=== PATIENT | male | born 2000 | race Caucasian/White ===

== ENCOUNTER 2018-01-24 09:49 | Outpatient (CLI) | payer OTHER | END 2018-01-24 09:50 | disposition critical access hospital (66) | LOC: EMS 09:49 | PROVIDERS: ATTEND Surgery | DX: R07.81 Pleurodynia (principal); M54.5 Low back pain; M25.551 Pain in right hip; M25.531 Pain in right wrist; W17.89XA Other fall from one level to another, initial encounter; Y92.69 Other specified industrial and construction area as the place of occurrence of the external cause; Y99.0 Civilian activity done for income or pay | CPT/HCPCS: A0425; A0427 ==

== ENCOUNTER 2018-01-24 10:06 | Emergency (ER) | payer OTHER ==
[2018-01-24] MEDS ORDERED: MORPHINE 10 MG/ML VIAL IVP STA (10:27)
[2018-01-24 10:35] LABS: BASOPHILS % (AUTO) 0.4 %; EOSINOPHILS # (AUTO) 0.1 10^3/uL (0.0-0.7); EOSINOPHILS % (AUTO) 1.3 %; HGB - HEMOGLOBIN 15.9 g/dL (14.0-18.0); LYMPHOCYTES % (AUTO) 22.2 %; MEAN CORPUSCULAR HEMOGLOBIN 29.9 pg (27.0-31.0); MEAN CORPUSCULAR HGB CONC 35.2 g/dL (32.0-36.0); MEAN CORPUSCULAR VOLUME 84.8 fL (80.0-94.0); MEAN PLATELET VOLUME 8.5 fL (7.4-11.4); MONOCYTES # (AUTO) 0.7 10^3/uL (0.0-1.0); MONOCYTES % (AUTO) 7.4 %; NEUTROPHILS # (AUTO) 6.2 10^3/uL (1.5-6.6); NEUTROPHILS % (AUTO) 68.7 %; PLT - PLATELET COUNT 152 10^3/uL (130-450); RED BLOOD COUNT 5.31 10^6/uL (4.70-6.10); RED CELL DISTRIBUTION WIDTH 13.1 % (12.0-15.0)
[2018-01-24 10:39] LABS: CALCIUM 9.6 mg/dL (8.5-10.3); CREATININE 1.3 mg/dL (0.6-1.2)
[2018-01-24] MEDS ORDERED: IOPAMIDOL-300 100 ML VIAL ONE (10:59)
[2018-01-24] MEDS ORDERED: IOPAMIDOL-300 100 ML VIAL IVP ONE (11:37)
--- NOTE | 2018-01-24 11:43 | CT Preliminary Report ---
Exam: CT HEAD W/O IMPRESSION: Normal head CT. [facility] SITE ID: [id number]
--- NOTE | 2018-01-24 11:44 | CT Report ---
EXAM: CT HEAD EXAM DATE: 01/24/2018 11:07 AM. CLINICAL HISTORY: 20 foot fall off scaffolding. COMPARISON: None. TECHNIQUE: Multiaxial CT images were obtained from the foramen magnum to the vertex. Reformats: Coron al. IV contrast: None. In accordance with CT protocol optimization, one or more of the following dose reduction techniques w ere utilized for this exam: automated exposure control, adjustment of mA and/or KV based on patient s ize, or use of iterative reconstructive technique. FINDINGS: Parenchyma: No intraparenchymal hemorrhage. No evidence of mass, midline shift, or CT findings of inf arction. Hall-white differentiation is distinct. Extraaxial Spaces: Normal for age. No subdural or epidural collections identified. Ventricles: Normal in size and position. Sinuses and Orbits: Small mucous retention cyst in the right maxillary sinus. Bones: No evidence of fracture or calvarial defect. Other: None. IMPRESSION: Normal head CT. [facility] Referring Provider Line: [phone] SITE ID: [id number]
--- NOTE | 2018-01-24 11:44 | XRAY Preliminary Report ---
Exam: XR WRIST 4 VIEW RT IMPRESSION: Normal wrist radiography. [facility] SITE ID: [id number]
--- NOTE | 2018-01-24 11:45 | XRAY Report ---
EXAM: RIGHT WRIST RADIOGRAPHY EXAM DATE: 01/24/2018 11:14 AM. CLINICAL HISTORY: Right wrist pain after falling 20 ft off scaffold. COMPARISON: None. TECHNIQUE: 4 views. FINDINGS: Bones: Normal. No fractures or bone lesions. Joints: Normal. No subluxations. Soft Tissues: Normal. No soft tissue swelling. IMPRESSION: Normal wrist radiography. [facility] Referring Provider Line: [phone] SITE ID: [id number]
--- NOTE | 2018-01-24 11:56 | CT Preliminary Report ---
Exam: CT CERVICAL SPINE W/O IMPRESSION: 1. Negative CT scan of the cervical spine. No acute injury. No significant spondylosis. [facility] SITE ID: [id number]
--- NOTE | 2018-01-24 12:06 | CT Report ---
EXAM: CT CERVICAL SPINE WITHOUT CONTRAST DATE: 01/24/2018 11:21 AM. HISTORY: 20 ft fall off scaffold. Right low abdominal/hip pain. COMPARISONS: None. TECHNIQUE: Thin-section axial images were acquired of the cervical spine without contrast. Post-proce ssing: Coronal and sagittal reformats. Other: None. In accordance with CT protocol optimization, one or more of the following dose reduction techniques w ere utilized for this exam: automated exposure control, adjustment of mA and/or KV based on patient s ize, or use of iterative reconstructive technique. FINDINGS: Alignment: No scoliosis or spondylolisthesis. Bones: No fracture or bone lesion. Normal osseous density is seen. Interspace Levels/Facets: C1-C2: Unremarkable. C2-C3: Unremarkable. C3-C4: Unremarkable. C4-C5: Unremarkable. C5-C6: Unremarkable. C6-C7: Unremarkable. C7-T1: Unremarkable. T1-T2, T2-T3: Unremarkable. Musculature: Normal. No fatty atrophy. Other: The paravertebral and prevertebral soft tissues are unremarkable. The lung apices are clear. S mall focus of polypoid mucosal thickening is seen posteromedially in the right maxillary antrum. IMPRESSION: 1. Negative CT scan of the cervical spine. No acute injury. No significant spondylosis. [facility] Referring Provider Line: [phone] SITE ID: [id number]
--- NOTE | 2018-01-24 12:06 | CT Preliminary Report ---
Exam: CT LUMBAR SPINE W/O IMPRESSION: 1. Negative CT scan of the lumbar spine. No acute abnormality. No significant spondylosis. No stenosi s. 2. Hypoplastic ribs are seen at T12 bilaterally. There are 4 nonrib-bearing lumbar type vertebrae. Sa cralization of L5 is seen bilaterally. 3. Negative CT scan of the sacrum. [facility] SITE ID: [id number]
--- NOTE | 2018-01-24 12:09 | CT Report ---
EXAM: CT CHEST EXAM DATE: 01/24/2018 11:37 AM. CLINICAL HISTORY: Fall from 20 feet, right sided chest pain. COMPARISONS: None. TECHNIQUE: Routine helical CT imaging was performed through the chest. IV contrast: 100 cc Isovue-300 . Reconstructions: Coronal and sagittal. In accordance with CT protocol optimization, one or more of the following dose reduction techniques w ere utilized for this exam: automated exposure control, adjustment of mA and/or KV based on patient s ize, or use of iterative reconstructive technique. FINDINGS: Lungs/Pleura: Small patchy groundglass attenuation lateral inferior left lower lobe and lingula. A sm all bleb and adjacent patchy groundglass opacities medial right lower lobe posterior to the right hea rt border. Minor atelectasis posterior basilar bilateral lower lobes. No lise consolidation. No pneu mothorax or pleural effusion. Mediastinum: Anterior superior mediastinal soft tissue density with triangular configuration, compati ble with residual thymus. No mediastinal hematoma or convincing adenopathy. Normal heart size without pericardial effusion. Unremarkable thoracic aorta and great vessels. Bones: Mild acute compression fracture T9 superior endplate without retropulsion. Intact posterior el ements. Mild local paraspinous soft tissue thickening. Mild anterior wedging of T6 superior endplate, without paraspinous soft tissue thickening. No rib or other fracture identified. Visualized Abdomen: No acute findings. See report of concurrent CT abdomen and pelvis. IMPRESSION: 1. Consistent with mild pulmonary contusion medial right lower lobe, lateral basilar left lower lobe, and lingula. No lise consolidation or effusion. 2. Mild acute compression fracture T9 superior endplate with mild local paraspinous soft tissue thick ening. 3. Minor anterior wedging of T6 superior endplate of uncertain acuity. 4. Unremarkable thoracic aorta. No mediastinal hematoma. Small thymic remnant. [facility] Referring Provider Line: [phone] SITE ID: [id number]
[2018-01-24 12:16] LABS: BILIRUBIN,URINE NEGATIVE (NEGATIVE); GLUCOSE, URINE (UA) NEGATIVE (NEGATIVE); KETONES,URINE (UA) NEGATIVE (NEGATIVE); LEUKOCYTE ESTERASE, URINE NEGATIVE (NEGATIVE); NITRITE,URINE NEGATIVE (NEGATIVE); OCCULT BLOOD,URINE LARGE (NEGATIVE); PH,URINE 7.5 PH (5.0-7.5); PROTEIN,URINE 30 mg/dL (NEGATIVE); UROBILINOGEN,URINE 1 (NORMAL) E.U./dL (NORMAL)
--- NOTE | 2018-01-24 12:22 | CT Preliminary Report ---
Exam: CT ABDOMEN/PELVIS W/ IMPRESSION: 1. No definite acute traumatic visceral injury. 2. Heterogeneous attenuation of the spleen, probably artifact of contrast bolus timing and diminishes parenchymal detail. No subcapsular or perisplenic collection. 3. Nonspecific somewhat hazy para-aortic fat planes, without focal hematoma or adenopathy. [facility] SITE ID: [id number]
--- NOTE | 2018-01-24 12:22 | CT Report ---
EXAM: CT LUMBAR AND SACRUM SPINE WITHOUT CONTRAST EXAM DATE: 01/24/2018 11:29 AM. CLINICAL HISTORY: Low back pain after a 20 foot fall. COMPARISONS: CT scan of the chest, abdomen, and pelvis 01/24/2018. TECHNIQUE: Thin-section axial images were acquired of the lumbar spine from T12 to S5 without contras t. Post-processing: Coronal and sagittal reformats. Other: None. In accordance with CT protocol optimization, one or more of the following dose reduction techniques w ere utilized for this exam: automated exposure control, adjustment of mA and/or KV based on patient s ize, or use of iterative reconstructive technique. FINDINGS: Alignment: No scoliosis or spondylolisthesis. Bones: There are four [id number] lumbar vertebral bodies are present. Hypoplastic ribs are seen at T12 bilaterally. Numbering assumes sacralization of the L5 vertebrae. No fractures or bone lesions . Disk Levels/Facets: T12-L1: Unremarkable. L1-L2: Unremarkable. L2-L3: Unremarkable. L3-L4: Unremarkable. L4-L5: Unremarkable. L5-S1: Unremarkable. Sacrum: The sacrum is intact. No fracture. The SI joints are unremarkable. Musculature: Normal. No fatty atrophy. Other: The visualized retroperitoneum is unremarkable. IMPRESSION: 1. Negative CT scan of the lumbar spine. No acute abnormality. No significant spondylosis. No stenosi s. 2. Hypoplastic ribs are seen at T12 bilaterally. There are four nonrib-bearing lumbar-type vertebrae. Sacralization of L5 is seen bilaterally. 3. Negative CT scan of the sacrum. [facility] Referring Provider Line: [phone] SITE ID: [id number]
--- NOTE | 2018-01-24 12:23 | CT Report ---
EXAM: CT ABDOMEN AND PELVIS EXAM DATE: 01/24/2018 11:37 AM. CLINICAL HISTORY: Right abd pain after falling 20 ft off scaffold. COMPARISONS: None. TECHNIQUE: Routine helical CT imaging was performed through the abdomen and pelvis. IV contrast: 100 cc Isovue-300. Enteric contrast: No. Reconstructions: Coronal and sagittal. In accordance with CT protocol optimization, one or more of the following dose reduction techniques w ere utilized for this exam: automated exposure control, adjustment of mA and/or KV based on patient s ize, or use of iterative reconstructive technique. FINDINGS: Lung Bases: Mild bibasilar groundglass opacities as described on the chest CT report. Liver: Unremarkable. No focal abnormality identified. Gallbladder/Bile Ducts: No calcified gallstones or ductal dilatation. Spleen: Normal size. Mild diffuse heterogeneous attenuation, question artifact related to contrast briana filipe timing. No subcapsular or perisplenic fluid collection. Pancreas: Unremarkable. Adrenal Glands: No nodule. Kidneys: Unremarkable, without hydronephrosis or abnormal parenchymal enhancement. Peritoneal Cavity/Bowel: No free fluid, free air, or mesenteric hematoma. No dilatation of the nonopa cified bowel. Normal appendix. Retroperitoneum: Nonspecific haziness of para-aortic fat planes just below the level of the renal ves sels. No discrete hematoma or adenopathy identified. Pelvic Organs: Unremarkable bladder and visualized pelvic organs. Vasculature: Unremarkable abdominal aorta. No significant findings identified. Bones: Mild compression fracture T9 superior endplate as described on the chest CT report. No pelvic fracture. Unremarkable hip joints. IMPRESSION: 1. No definite acute traumatic visceral injury. 2. Heterogeneous attenuation of the spleen, probably artifact of contrast bolus timing and diminishes parenchymal detail. No subcapsular or perisplenic collection. 3. Nonspecific somewhat hazy para-aortic fat planes, without focal hematoma or adenopathy. [facility] Referring Provider Line: [phone] SITE ID: [id number]
[2018-01-24 12:26] LABS: CLARITY,URINE CLEAR (CLEAR)
[2018-01-24 12:37] LABS: BACTERIA,URINE Rare /HPF (None Seen); SQUAMOUS EPITHELIAL CELL,UR RARE Squamous (<= Few)
[2018-01-24 12:58] VITALS: BP 137/91
[2018-01-24] MEDS ORDERED: IBUPROFEN 800 MG TABLET PO STA (13:09)
--- NOTE | 2018-01-24 13:12 | ED Physician Documentation ---
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 He impacted the right side of his body. He denies loss of consciousness. He presents now via ambulance, complaining of pain in his right hip, low back, right chest, and right wrist. He denies headache, neck pain, abdominal pain, numbness or weakness. Vaccinations are up-to-date. Review of Systems Constitutional: denies: Fever Eyes: denies: Decreased vision Nose: denies: Congestion Throat: denies: Sore throat Cardiac: reports: Chest pain / pressure (right sided) Respiratory: denies: Dyspnea, Cough GI: denies: Abdominal Pain, Nausea, Vomiting : denies: Dysuria, Incontinent Skin: denies: Laceration (s) Musculoskeletal: reports: Back pain, Extremity pain (Right lower extremity. Right wrist.). denies: Neck pain Neurologic: denies: Focal weakness, Numbness, Headache, LOC PD PAST MEDICAL HISTORY - Past Medical History Past Medical History: No Respiratory: None Endocrine/Autoimmune: None - Past Surgical History Past Surgical History: No - Present Medications Home Medications: Ambulatory Orders Medication Instructions Recorded Confirmed HYDROcod/ACETAM 5/325 [[place] 5/325] 1 - 2 ea PO Q6H PRN #30 tablet 01/24/18 - Allergies Allergies/Adverse Reactions: Allergies Allergy/AdvReac Type Severity Reaction Status Date / Time No Known Drug Allergies Allergy Verified 01/24/18 10:14 - Social History Does the pt smoke?: Yes Smoking Status: Current every day smoker PD ED PE NORMAL - Vitals Vital signs reviewed: Yes (Initially hypertensive.) - General General: Alert and oriented X 3, Well developed/nourished - HEENT HEENT: Atraumatic, EOMI, Ears normal - Neck Neck: No bony TTP - Cardiac Cardiac: RRR, No murmur - Respiratory Respiratory: No respiratory distress, Clear bilaterally, Other (Tenderness to palpation along the right mid to lower chest wall. No bony step-off palpated.) - Abdomen Abdomen: Soft, Non tender - Back Back: No CVA TTP, Other (Tenderness to palpation of the lower thoracic spine.) - Derm Derm: No rash - Extremities Extremities: Other (Tenderness to palpation at the radial aspect of the right wrist. He has full range of motion of his shoulders and elbows without tenderness. He has full range of motion of his hips, knees, and ankles bilaterally, without tenderness.) - Neuro Neuro: Alert and oriented X 3, No motor deficit, No sensory deficit Results - Vitals Vitals: Oxygen O2 Source Room air - Labs Labs: Laboratory Tests 01/24/18 01/24/18 01/24/18 10:10 10:10 12:00 WBC 9.0 RBC 5.31 Hgb 15.9 Hct 45.1 MCV 84.8 MCH 29.9 MCHC 35.2 RDW 13.1 Plt Count 152 MPV 8.5 Neut # 6.2 Lymph # 2.0 [place] # 0.7 Eos # 0.1 Baso # 0.0 Absolute Nucleated RBC 0.01 Nucleated RBC % 0.1 Sodium 137 Potassium 4.6 Chloride 102 Carbon Dioxide 27 Anion Gap 8.0 BUN 19 Creatinine 1.3 H Estimated GFR (MDRD) 71 L Glucose 106 H Calcium 9.6 Urine Color YELLOW Urine Clarity CLEAR Urine pH 7.5 Ur Specific [place] 1.010 Urine Protein 30 H Urine Glucose (UA) NEGATIVE Urine Ketones NEGATIVE Urine Occult Blood LARGE H Urine Nitrite NEGATIVE Urine Bilirubin NEGATIVE Urine Urobilinogen 1 (NORMAL) Ur Leukocyte Esterase NEGATIVE Urine RBC 11-25 H Urine WBC 0-3 Ur Squamous Epith Cells RARE Squamous Urine Bacteria Rare Ur Microscopic Review INDICATED Urine Culture Comments NOT INDICATED - Rads (name of study) Right wrist Radiology: Prelim report reviewed, EMP read contemporaneously, See rad report ( Normal wrist radiography.) Head CT Radiology: Prelim report reviewed, EMP read contemporaneously, See rad report ( Normal head CT.) C-spine CT Radiology: Prelim report reviewed, EMP read contemporaneously, See rad report ( Negative CT scan of the cervical spine. No acute injury. No significant spondylosis.) CT lumbar spine Radiology: Prelim report reviewed, EMP read contemporaneously, See rad report (1 ) Negative CT scan of the lumbar spine. No acute abnormality. No significant spondylosis. No stenosis. 2) Hypoplastic ribs are seen at T12 bilaterally. There are 4 nonrib-bearing lumbar type vertebrae. Sacralization of L5 is seen bilaterally. 3) Negative CT scan of the sacrum.) CT abd/pelvis Radiology: Prelim report reviewed, EMP read contemporaneously, See rad report (1 ) No definite acute traumatic visceral injury. 2) Heterogeneous attenuation of the spleen, probably artifact of contrast bolus timing and diminishes parenchymal detail. No subcapsular or perisplenic collection. 3) nonspecific somewhat hazy para-aortic fat planes, without focal hematoma or adenopathy.) CT Chest Radiology: Prelim report reviewed, EMP read contemporaneously, See rad report (1 ) Consistent with mild pulmonary contusion medial right lower lobe, lateral basilar left lower lobe, and lingula. No lise consolidation or effusion. 2) Mild acute compression fracture T9 superior endplate with mild local paraspinous spine tissue thickening. 3) Minor anterior wedging of T6 superior endplate of uncertain acuity. 4) Unremarkable thoracic aorta. No mediastinal hematoma. Small splenic remnant.) Procedures - Splint (location) Right wrist Type of splint: Prefab velcro wrist Other: Patient tolerated well, No complications, Neurovascular intact PD MEDICAL DECISION MAKING - ED course Complexity details: reviewed results, re-evaluated patient, considered differential, d/w patient, d/w family ED course: The patient's presentation is significant for injuries sustained in a fall from a height of 20 feet. Assessment included extensive imaging studies, including CT scans of his head, cervical spine, chest, abdomen and pelvis, lumbar spine, and x-rays of his right wrist. Positive findings on these imaging studies included minor superior endplate compression fracture of T9 vertebra, and right pulmonary contusion. X-ray of the right wrist reveals no acute bony abnormality , but an occult navicular fracture cannot be completely excluded. Treatment in the emergency department included administration of morphine 5 mg IV, ibuprofen 800 mg orally, and application of a Velcro wrist splint. Following the imaging studies, the patient demonstrated ability to ambulate. I discussed his condition with orthopedist, Dr. Casillas, who will see him in clinic in follow-up. I discussed with the patient and his companions the results of his workup, expected course of injuries and outpatient follow-up, as well as potentially worrisome signs or symptoms that should prompt reevaluation in the emergency department. He is being discharged with prescription for Vicodin, 30 tablets. An L&I form was completed. Departure - Departure Disposition: 01 Home, Self Care Clinical Impression: Injury resulting from fall from height T9 vertebral fracture Qualifiers: Encounter type: initial encounter Fracture type: closed Fracture morphology: wedge compression Qualified Code(s): S22.070A - Wedge compression fracture of T9 -T10 vertebra, initial encounter for closed fracture Right pulmonary contusion Qualifiers: Encounter type: initial encounter Qualified Code(s): S27.321A - Contusion of lung, unilateral, initial encounter Wrist contusion Qualifiers: Encounter type: initial encounter Laterality: right Qualified Code(s): S60.211A - Contusion of right wrist, initial encounter Condition: Stable Instructions: ED Contusion Upper Ext, ED Contusion Chest Wall, ED Sprain Thoracic Spine Follow-Up: [facility] [Provider Group] Prescriptions: HYDROcod/ACETAM 5/325 [[place] 5/325] 1 - 2 ea PO Q6H PRN #30 tablet PRN Reason: Pain Comments: Apply ice pack to the sore areas intermittently for the next 3 or 4 days. You can use ibuprofen, up to 800 mg 3 times daily for its anti-inflammatory effect. You can use Vicodin as prescribed if needed for pain. Use the Velcro wrist splint for comfort. Follow-up with orthopedics within 1 week. Call today to schedule an appointment. Return to the emergency department if you develop markedly increasing pain despite the pain medication, difficulty breathing, or otherwise worsening symptoms. Forms: Activity restrictions Discharge Date/Time: 01/24/18 13:25
== END 2018-01-24 13:25 | disposition home or self-care (01) ==
LOC: ED 10:06
DX: S22.070A Wedge compression fracture of T9-T10 vertebra, initial encounter for closed fracture (principal); S27.321A Contusion of lung, unilateral, initial encounter; S60.211A Contusion of right wrist, initial encounter; M54.2 Cervicalgia; W17.89XA Other fall from one level to another, initial encounter; Y99.0 Civilian activity done for income or pay; F17.200 Nicotine dependence, unspecified, uncomplicated
CPT/HCPCS: 1040M; 36415; 70450; 71260; 72125; 72131; 73110; 74177; 80048; 81001; 85025; 96374; 99284; 99285; A9270; Q9967; 81003; 87086